=== PATIENT | female | born 2000 | race Caucasian/White ===

== ENCOUNTER 2022-05-16 18:38 | Emergency (ER) | payer BC, SELFPAY ==
[2022-05-16 18:47] VITALS: BP 111/81; PULSE 90; RESP 16; TEMP 37.3; O2SAT 100
--- NOTE | 2022-05-16 19:00 | ED.EAR ---
HPI - Ear Problem General Chief complaint: Ear Stated complaint: ear pain and pressure; Time Seen by Provider: 05/16/22 18:51 Source: patient Mode of arrival: ambulatory Limitations: no limitations History of Present Illness HPI Narrative: Patient presents today complaining of bilateral ear pain, mostly in the right that started when she was flying home to [place] from [place] where she goes to school. States her ears were popping in the air, but not as they should. She is complaining of muffled hearing in the right with intermittent sharp pains. She currently rates her pain 5/10 and has not tried any [id number] treatment prior to arrival. Patient is also complaining left nose inflammation. She had her posterior nasal cautery for epistaxis done last month and states she is having some inflammation and wanted to have her nose checked. She has an appointment at the end of the month wit her ENT, but wanted to have it checked today. Related Data Home Medications Medication Instructions Recorded Confirmed levonorgestrel-ethinyl estradiol 1 tablet PO DAILY 01/19/21 05/16/22 0.1 mg-20 mcg tablet (Lessina) multivitamin 1 tablet PO DAILY 01/19/21 05/16/22 cetirizine 10 mg tablet (Zyrtec) 10 mg PO DAILY 05/16/22 05/16/22 spironolactone 50 mg tablet 75 mg PO DAILY 05/16/22 05/16/22 Allergies Allergy/AdvReac Type Severity Reaction Status Date / Time No Known Allergies Allergy Verified 05/16/22 18:49 Review of Systems Review of Systems: CONSTITUTIONAL: Denies body aches, fever, chills, or sweats. EYES: Denies visual changes, redness, or discharge. ENT: Denies rhinorrhea, congestion, sore throat. + bilateral ear pain, Left nasal inflammation CARDIOVASCULAR: Denies chest pain, palpitations, or edema. RESPIRATORY: Denies cough or dyspnea. GASTROINTESTINAL: Denies abdominal pain, nausea, vomiting, or diarrhea. GENITOURINARY: Denies dysuria or hematuria. SKIN: Denies rash, itching, or wounds. MUSCULOSKELETAL: Denies back pain, joint pain, or myalgia. NEUROLOGIC: Denies headache, numbness, tingling, or weakness. PSYCH: Denies depression or anxiety. [facility] Surgical History Surgical History H/O knee surgery Family History Family History Grandparent Diabetes mellitus Hypertension Heart disease Brain tumor Aneurysm Hyperlipidemia Social History Social History Smoking status: Never smoker Second hand tobacco smoke exposure: No Alcohol intake: never Substance use: unknown Comments At time of signature, I have reviewed and agree with nursing past medical, surgical, social and family history unless otherwise noted. Please see nursing chart for further information. There is no relevant family history pertinent to the presenting complaint Exam Narrative: GENERAL: Well-appearing, well-nourished, and in no acute distress. HEAD: Normocephalic, atraumatic. EYES: EOMI. No redness or drainage. Conjunctivae normal. ENT: Mucous membranes pink and moist. Nares clear. left nasal mucosa normal without edema, erythema, drainage.No rhinorrhea. Bilateral TMs are mildly erythematous. Right mild serous effusion. No evidence of bacterial infection bilaterally. Throat normal. Uvula midline. NECK: Normal AROM. Supple. No lymphadenopathy. CHEST: No respiratory distress. EXTREMITIES: Normal range of motion. No edema. SKIN: Warm, dry, no rash. Capillary refill normal. Normal skin turgor. NEURO: No focal deficits. Alert and oriented x3. Gait steady. PSYCH: Normal affect. No signs of depression or anxiety. Course Course Level of Care: Express Care Visit Vital Signs Vital signs: Vital Signs Temperature 99.2 F 05/16/22 18:47 Pulse Rate 90 05/16/22 18:47 Respiratory Rate 16 05/16/22 18:47 Blood Pressure
== END 2022-05-16 19:07 | disposition home or self-care (01) ==
PROVIDERS: Emergency Provider Nurse Practitioner; PCP Physician Assistant
DX: H65.01 Acute serous otitis media, right ear (principal)
CPT/HCPCS: 99211; G0463

== ENCOUNTER 2024-01-22 16:53 | Emergency (ER) | payer BC, SELFPAY ==
--- NOTE | 2024-01-22 17:03 | ED.NAVMDI ---
HPI - Nausea/Vomiting/Diarrhea General Chief complaint: Nausea/Vomiting/Diarrhea Stated complaint: Fever/Diarrhea Time Seen by Provider: 01/22/24 17:03 Source: patient Mode of arrival: ambulatory Limitations: no limitations History of Present Illness HPI Narrative: Yolande is a 23-year-old female patient presenting to the clinic today with complaints of fever, nausea, and diarrhea for the past 4 days. She reports she has only had 2 diarrhea stools today. Denies any blood in her stools. States that she does have some nausea and abdominal cramping. Highest fever was 102 on Friday when her symptoms began. She denies any URI symptoms or sore throat. States yesterday she developed a rash on her chest in abdomen but that has since resolved. Related Data Home Medications Medication Instructions Recorded Confirmed levonorgestrel-ethinyl estradiol 1 tablet PO DAILY 01/19/21 01/22/24 0.1 mg-20 mcg tablet (Lessina) multivitamin 1 tablet PO DAILY 01/19/21 01/22/24 cetirizine 10 mg tablet (Zyrtec) 10 mg PO DAILY 05/16/22 01/22/24 spironolactone 50 mg tablet 75 mg PO DAILY 05/16/22 01/22/24 fluticasone 100 mcg-salmeterol 50 1 inh inhalation Q12H 02/24/23 01/22/24 mcg/dose blistr powdr for inhalation (Advair Diskus) fluticasone propionate 50 2 spray intranasal BID 01/22/24 01/22/24 mcg/actuation nasal spray,suspension magnesium 250 mg tablet 250 mg PO DAILY 01/22/24 01/22/24 Allergies Allergy/AdvReac Type Severity Reaction Status Date / Time No Known Allergies Allergy Verified 01/22/24 17:01 Review of Systems Review of Systems: Pertinent positives per HPI. Patient denies any fever, chills, rash, headache, visual changes, dizziness, cough, runny nose, sore throat, shortness of breath, chest pain, palpitations, nausea, vomiting, diarrhea, constipation, abdominal pain, or any urinary issues. [facility] Surgical History Surgical History H/O knee surgery Family History Family History Grandparent Diabetes mellitus Hypertension Heart disease Brain tumor Aneurysm Hyperlipidemia Social History Social History Smoking status: Never smoker Second hand tobacco smoke exposure: No Alcohol intake: never Substance use: unknown Current Housing: Decline to Answer Concerned About Future Housing: Decline to Answer Difficulty Paying Gas/Electric Bills: Decline to Answer Difficulty Paying for Meds: Decline to Answer Currently Unemployed: Decline to Answer Education: Decline to Answer Difficulty w/ Childcare or Family Care: Decline to Answer Comments At the time of my signature, I reviewed and agree with the nursing past medical, surgical, social, and family history. There is no relevant family history pertinent to the patient complaint. Exam Narrative: General: Well-developed, well nourished, in no apparent distress Head: Normocephalic, atraumatic Eyes: Pupils equally round and reactive to light bilaterally, EOM intact, sclera and conjunctive clear, no discharge, lids normal Ears: TMs intact and clear, ear canals clear, no drainage, grossly hearing normal. Nose: Nares patent, no discharge, no inflammation, no sinus tenderness. Mouth: Oropharynx without lesions or masses, good dentition, MMM. Neck: Supple, trachea midline, no enlargement of anterior or posterior cervical nodes, no thyroid masses or goiter palpable. Cardio: Regular rate and rhythm, s1 and s2 normal, no murmur appreciated. Resp: Clear to auscultation bilaterally anteriorly and posteriorly, no rhonchi, rales, wheezing or rubs Abdomen: Soft, pliable, bowel sounds present in all quadrants, non-tender to palpation, no organomegly, no CVAT tenderness. Course Course Emergency Course: Portions of this record may have been created with voice recogn
[2024-01-22 17:07] VITALS: BP 116/86; PULSE 81; RESP 16; TEMP 36.9; O2SAT 97
[2024-01-22 17:23] LABS: EDSTREPNEGPOS1 Presumptive Negative
[2024-01-22 17:27] LABS: EDINFLUASCREEN Negative; EDINFLUBSCREEN Negative
== END 2024-01-22 17:30 | disposition home or self-care (01) ==
PROVIDERS: Emergency Provider Nurse Practitioner Family; PCP Internal Medicine
DX: K52.9 Noninfective gastroenteritis and colitis, unspecified (principal); Z20.822 Contact with and (suspected) exposure to COVID-19
CPT/HCPCS: 87081; 87426; 87804; 87880; 99213; G0463